=== PATIENT | female | born 1955 | race Hispanic/Latino ===

== ENCOUNTER 2021-10-11 11:07 | Outpatient (CLI) | payer OTHER, SELFPAY ==
--- NOTE | ~2021-10-11 | XR_ITS ---
XR lumbar spine 2-3V DATE: 10/11/2021 11:43 INDICATION: Chronic low back pain with intermittent left lower extremity radiculopathy TECHNIQUE: AP, lateral, coned lateral lumbosacral views COMPARISON: 02/24/2015 lumbar spine FINDINGS: Diffuse osteopenia. There is mild thoracolumbar levoscoliosis. Moderately severe degenerative disc disease is noted at L2-3 and L5-S1. Remaining lumbar interspaces are relatively preserved. There is degenerative spurring the lower thoracic spine. No fracture or bone destruction is evident. There is degenerative change at the apophyseal joints wit h associated minimal grade 1 anterolisthesis at L4-5. The sacroiliac joints are intact. IMPRESSION: Osteopenia Mild thoracolumbar levoscoliosis Mildly severe degenerative disc disease at L2-3 and L5-S1, worsened since 02/24/2015 Grade 1 anterolisthesis at L4-5 due to degenerative change at the apophyseal joints Reviewed, dictated and finalized at location A. IMPRESSION: Osteopenia Mild thoracolumbar levoscoliosis Mildly severe degenerative disc disease at L2-3 and L5-S1, worsened since 02/24 Grade 1 anterolisthesis at L4-5 due to degenerative change at the apophyseal anil ints
== END 2021-10-11 11:08 | disposition home or self-care (01) ==
PROVIDERS: PCP Family Medicine; Visit Provider Physician Assistant
DX: M54.59 Other low back pain (principal); M41.86 Other forms of scoliosis, lumbar region; M51.36 Other intervertebral disc degeneration, lumbar region; M43.16 Spondylolisthesis, lumbar region
CPT/HCPCS: 72100

== ENCOUNTER 2022-06-18 14:44 | Outpatient (CLI) | payer MEDICARE, MEDICAID, SELFPAY ==
--- NOTE | ~2022-06-18 | MM_ITS ---
EXAMINATION: MM screening elif BI w wilmer HISTORY: Screening mammogram TECHNIQUE: Craniocaudal and mediolateral oblique 3-D tomosynthesis images were obtained and synthetic 2-D images were generated. CAD analysis was submitted and interpreted. COMPARISON: 08/17/2013, 08/15/2012 bilateral screening mammogram examinations BREAST PARENCHYMAL COMPOSITION: There are scattered areas of fibroglandular density. FINDINGS: There is no evidence of suspicious mass, calcification, or architectural distortion to sugg est malignancy in either breast. There has been no suspicious interval change. IMPRESSION: 1. No mammographic evidence of malignancy. 2. Recommend routine screening mammography in one year. BI-RADS Category 1: Negative Reviewed, dictated and finalized at location A. L [employer]
--- NOTE | ~2022-06-18 | DEXA_ITS ---
Bone Density Report Name: CAREY HAYDEN Age: 66 Sex: Female Ethnicity: White Date of : 1955 Indication: postmenopausal; screening for osteoporosis; Referring Provider: KYLIE, COLIN Cantu Study: Bone densitometry was performed. Exam Date: June 18, 2022 Accession number: [id number] Bone Density: Region BMD T-score Z-score Classification AP Spine(L1-L4) 0.761 -2.6 -0.7 Osteoporosis Femoral Neck (Left) 0.594 -2.3 -0.6 Osteopenia Total Hip (Left) 0.814 -1.0 0.3 Normal Femoral Neck (Right) 0.633 -1.9 -0.3 Osteopenia Total Hip (Right) 0.772 -1.4 0.0 Osteopenia Total Hip Mean 0.793 -1.2 0.2 Osteopenia World Health Organization criteria for BMD impression classify patients as: Normal (T-score at or above -1.0), Osteopenia (T-score between -1.0 and -2.5), or Osteoporosis (T-score at or below -2.5). 10-year Fracture Risk: FRAX not reported because: Some T-score for Spine Total or Hip Total or Femoral Neck at or below -2.5 Clinical Information Provided by Patient: Has used the following medications: Vitamin D, Calcium Patient maximum height was 59 Menopause Age: 41 No regular weight bearing exercise Drinks caffeinated beverages Onset of menses at age 10 Number of children 5 Impression: The patient has osteoporosis, based on the Total Spine T-score. Discussion: INCREASED RISK OF FRACTURE. BONE DENSITY IS UNDESIRABLY LOW AT ONE OR MORE SKELETAL SITES, CONSISTENT WITH POSTMENOPAUSAL OSTEOPOROSIS. This patient's lowest T-score meets the World Health Organization's (WHO) criteria for osteoporosis at one or more sites (T-score -2.5 or below). In untreated patients, the risk of osteoporotic fracture increases approximately two-fold for each 1.0 SD decrease in T-score. Low bone density is not the only risk factor for fracture; also consider factors such as patient's age, frailty or poor health, risk of falling, risk of injury, previous osteoporotic fracture, family history of osteoporosis, cigarette smoking, low body weight, etc. Not everyone with low bone mineral density has osteoporosis; osteomalacia and other metabolic bone disorders should also be considered. Patients who have osteoporosis should be evaluated for specific diseases and conditions (secondary causes) that may cause or contribute to bone loss. The [place] [employer] Endocrinologists (AACE) and National Osteoporosis Foundation (NOF) recommend pharmacologic intervention for all postmenopausal women whose T-score is in this range. The patient should follow a healthful lifestyle (good nutrition with adequate calcium and vitamin D, and appropriate weight-bearing exercise). Follow-Up: Consider a repeat BMD and Vertebral Fracture Assessment (VFA) exam in 2 years or sooner if medically necessary, to reassess this patient's s
== END 2022-06-18 14:45 | disposition home or self-care (01) ==
LOC: ANHIMG 14:46
PROVIDERS: PCP Family Medicine; Visit Provider Physician Assistant
DX: Z12.31 Encounter for screening mammogram for malignant neoplasm of breast (principal); Z78.0 Asymptomatic menopausal state; M81.0 Age-related osteoporosis without current pathological fracture; M85.852 Other specified disorders of bone density and structure, left thigh; M85.851 Other specified disorders of bone density and structure, right thigh
CPT/HCPCS: 77063; 77067; 77080

== ENCOUNTER 2023-02-07 09:55 | Emergency (ER) | payer MEDICARE, MEDICAID, SELFPAY ==
[2023-02-07] VITALS (29 sets, daily range): BP systolic 116–144; BP diastolic 49–92; PULSE 60–83; RESP 12–30; TEMP 36.9; O2SAT 95–100
--- NOTE | ~2023-02-07 | XR_ITS ---
XR knee RT min 4V DATE: 02/07/2023 11:05 INDICATION: Bilateral knee pain, right greater than left TECHNIQUE: 4 views COMPARISON: None FINDINGS: There is osteopenia. No fracture or dislocation or joint effusion, periosteal reaction or bone destruction is detected. Yanely int spaces appear well preserved. No radiopaque intra-articular loose body or chondrocalcinosis. Slight periarticular spurring of the patella. IMPRESSION: Osteopenia Slight patellofemoral osteoarthritis Reviewed, dictated and finalized at location L.
--- NOTE | ~2023-02-07 | XR_ITS ---
XR knee LT min 4V DATE: 02/07/2023 11:05 INDICATION: Bilateral knee pain, right greater than left TECHNIQUE: 4 views COMPARISON: None FINDINGS: There is osteopenia. There is mild periarticular spurring at the patellofemoral and medial compartments but joint spaces a ppear relatively preserved. No fracture or dislocation or joint effusion. No radiopaque intra-articular loose body or chondrocalc inosis. No periosteal reaction or bone destruction. IMPRESSION: Osteopenia Mild osteoarthritis Reviewed, dictated and finalized at location L.
--- NOTE | ~2023-02-07 | CT_ITS ---
EXAMINATION: CT abdomen pelvis w con DATE: 02/07/2023 14:23 INDICATION: Left flank pain TECHNIQUE: Computed tomography (CT) of the abdomen and pelvis was performed with 100 mL Omnipaque-350 intravenous contrast. Automated exposure control and iterative reconstruction technique were employe d. The dose-length product was 457.36 mGy-cm. COMPARISON: None FINDINGS: Minimal subpleural atelectasis in the bilateral lower lobes. Heart size is normal. No pericardial or pleural effusion. Diffuse hepatic steatosis. Gallbladder, spleen, pancreas, bilateral adrenal glands and kidneys are normal. Bowels including the appendix are normal. Partially decompressed bladder, ant everted uterus and bilateral adnexa are unremarkable. There are rim calcified heterotopic ossicles in the pelvis which may represent sequela of chronic fat necrosis. No free intraperitoneal gas or fluid . No pathologically enlarged abdominal or pelvic lymphadenopathy. Small fat-containing umbilical steffi ia. Mild lumbar dextrocurvature. Severe spondylosis at the lumbosacral junction with moderate spondyl osis of the more cephalad lumbar and lower thoracic spine. IMPRESSION: 1. No acute intra-abdominal/pelvic process. Reviewed, dictated and finalized at location A.
[2023-02-07 11:24] LABS: Appearance Urine Clear (Clear); Bilirubin Urine Negative (Negative); Blood Urine 2+ (Negative); Color Urine Yellow (Yellow); Glucose Urine UA 2+ mg/dL (Negative); Ketones Urine Negative (Negative); Leukocyte Esterase Ur Trace LEU/UL (Negative); Nitrate Urine Negative (Negative); Protein Urine Negative (Negative); pH Urine 6.5 (5.0-9.0)
[2023-02-07 11:29] LABS: Bacteria Urine None Seen /hpf; Non Pathogenic Casts 0-2; RBC Urine 0-2 /hpf (0-2); Squamous Epithelial Cell Urine Occasional /hpf (Few); WBC Urine 0-5 /hpf
[2023-02-07 11:36] LABS: Add Urine Microscopic? YES
[2023-02-07 12:29] LABS: Basophils Percent Auto 0.5 % (0.2-1.2); Eosinophils Absolute Auto 0.2 K/mm3 (0-0.3); Hematocrit 42.5 % (37.0-47.0); Hemoglobin 14.3 g/dL (12.0-15.0); Immature Granulocyte Absolute 0.03 K/mm3 (0.00-0.031); Immature Granulocyte Percent A 0.4 % (0-0.5); Lymphocytes Absolute Auto 2.73 K/mm3 (0.9-3.2); Mean Corpuscular HGB Conc 33.6 g/dl (32-36); Mean Corpuscular Hemoglobin 29.7 pg (26-34); Mean Corpuscular Volume 88.4 fl (80-100); Mean Platelet Volume 11.9 fl (7.4-10.4); Monocytes Absolute Auto 0.4 K/mm3 (0.1-0.6); Monocytes Percent Auto 5.3 % (2.6-8.5); Neutrophils Absolute Auto 4.2 K/mm3 (1.3-6.7); Neutrophils Percent Auto 55.8 % (45.5-73.1); Platelet Count Result 184 k/mm3 (150-375); Red Blood Count 4.81 M/mm3 (4.2-5.4); White Blood Count 7.6 K/mm3 (4.5-10.0)
[2023-02-07 12:43] LABS: Alanine Aminotransferase 48 U/L (6-35); Albumin Level 4.6 g/dL (3.5-5.1); Alkaline Phosphatase 135 U/L (38-126); Anion Gap 9 mmol/L (8-16); Aspartate Amino Transferase 45 U/L (14-36); Bilirubin,Total 0.6 mg/dL (0.2-1.3); Blood Urea Nitrogen 15 mg/dL (7-17); Calcium 9.5 mg/dL (8.4-10.2); Carbon Dioxide 31 mmol/L (22-30); Chloride 98 mmol/L (98-107); Estimated CRCL calculation 77 ml/min; Estimated Glomerular Filt Rate > 60; Glucose 209 mg/dL (65-110); Potassium 4.1 mmol/L (3.4-5.0); Sodium 138 mmol/L (137-145)
--- NOTE | 2023-02-07 15:39 | ED.GENADULT ---
HPI - General Adult General Chief complaint: Unspecified Stated complaint: feet hurting, falling, vaginal bleeding Time Seen by Provider: 02/07/23 12:32 History of Present Illness HPI narrative: This is a 67-year-old female, who presents emergency department complaining of bilateral knee pain for the past several weeks and hematuria for the past several days. The patient denies any recent trauma or falls. She complains of bilateral dull knee pain, rated 4/10. She complains of some dysuria and has noted blood with wiping. She denies bleeding from any other source. She also complains of bilateral paresthesias of the feet. Related Data Allergies Allergy/AdvReac Type Severity Reaction Status Date / Time No Known Allergies Allergy Verified 02/07/23 09:56 Review of Systems Review of Systems: CONSTITUTIONAL: Denies fever, chills, or sweats. CARDIOVASCULAR: Denies chest pain, palpitations, or edema. RESPIRATORY: Denies cough or dyspnea. GASTROINTESTINAL: Denies abdominal pain, nausea, vomiting, or diarrhea. GENITOURINARY: Dysuria and hematuria SKIN: Denies rash or itching. MUSCULOSKELETAL: Bilateral knee pain denies back pain, or myalgia. NEUROLOGIC: Paresthesias of the feet denies headache, numbness, dizziness, or weakness. PSYCHIATRIC: Denies anxiety or depression. PMFSH Past Medical History Medical History Diabetes mellitus Hypertension Surgical History Surgical History History of Social History Social History Smoking status: Never smoker Alcohol intake: current Drinks per week: 1 Substance use: never Exam Narrative: GENERAL: Well-developed, well-nourished, and in no acute distress. HEAD: Normocephalic, atraumatic. EYES: PERRLA and EOMI. CHEST: Clear to auscultation. No respiratory distress. No wheezes rales or rhonchi HEART: Regular rate and rhythm. No murmur heard. Normal peripheral pulses. ABDOMEN: Soft, nontender, nondistended, normal active bowel sounds. EXTREMITIES: No noted erythema, induration or swelling of the knees. Normal range of motion. No edema. SKIN: Warm, dry, no rash. NEURO: Alert and oriented x3. Moving all 4 limbs purposefully. PSYCH: Normal mood and affect. Course Course Emergency Course: 16:00 - CBC unremarkable. Chemistries demonstrate hyperglycemia but are otherwise unremarkable. CT not concerning for acute process. Xrays of the knees negative. Will discharge with antibiotics for UTI. I suspect the patient's paresthesias are related to peripheral neuropathy. Will trial a course of gabapentin. I advised the patient to follow up with her primary care doctor. Discussed return and emergency precautions including signs/symptoms of acute abdomen and intractable vomiting. The patient voiced understanding and is comfortable with the plan. All questions answered to her satisfaction. Vital Signs Vital signs: Vital Signs Temperature 98.5 F 02/07/23 10:11 Pulse Rate 77 02/07/23 10:11 Respiratory Rate 16 02/07/23 10:11 Blood Pressure 144/88 H 02/07/23 10:11 Pulse Oximetry 100 02/07/23 10:11 Temperature 98.5 F 02/07/23 10:11 Pulse Rate 75 02/07/23 16:15 Respiratory Rate 17 02/07/23 16:15 Blood Pressure 130/92 H 02/07/23 16:15 Pulse Oximetry 97 02/07/23 16:15 Medical Decision Making [facility] Narrative Medical decision making narrative: Plan: Labs, imaging, reasses Differential Diagnosis Differential Diagnosis: UTI, pyelonephritis, kidney stone, diverticulitis, cholecystitis, metabolic abnormality, osteoarthritis, peripheral neuropathy, other Vital Signs Vital Signs: Vital Signs Temperature 98.5 F 02/07/23 10:11 Pulse Rate 77 02/07/23 10:11 Respiratory Rate 16 02/07/23 10:11 Blood Pressure 144/88 H 02/07/23 10:11 Pulse Oximetry 100 02/07/23 1
== END 2023-02-07 16:15 | disposition home or self-care (01) ==
PROVIDERS: Emergency Provider Preventive Medicine Aerospace Medicine; PCP Family Medicine
DX: N39.0 Urinary tract infection, site not specified (principal); R31.9 Hematuria, unspecified; E11.42 Type 2 diabetes mellitus with diabetic polyneuropathy; I10 Essential (primary) hypertension; M17.0 Bilateral primary osteoarthritis of knee; M85.88 Other specified disorders of bone density and structure, other site
CPT/HCPCS: 36415; 73564; 74177; 80053; 81001; 85025; 99284; Q9967

== ENCOUNTER 2023-07-14 19:09 | Emergency (ER) | payer MEDICARE, SELFPAY ==
[2023-07-14 19:30] VITALS: BP 144/59; PULSE 71; RESP 16; TEMP 37.2; O2SAT 98
--- NOTE | 2023-07-14 19:37 | ED.FEMALEGU ---
HPI - Female Genitourinary General Chief complaint: Urogenital-Female Stated complaint: urinary issue, right foot pain Time Seen by Provider: 07/14/23 19:35 Source: patient and RN notes reviewed Mode of arrival: ambulatory Limitations: no limitations History of Present Illness HPI Narrative: 67-year-old female presents with concern for dysuria, frequency, urgency, urine incontinence that started yesterday. She reports fatigue, denies fever, body aches, chills, sweats, abdominal pain, back pain, nausea or vomiting. She also reports flare-up of chronic knee pain. MD elicited complaint: UTI Related Data Home Medications Medication Instructions Recorded Confirmed cholecalciferol (vitamin D3) 125 1 unit PO DAILY 07/14/23 07/14/23 mcg (5,000 unit) capsule glipizide 10 mg tablet, extended 10 mg PO QAM 07/14/23 07/14/23 release 24 hr omeprazole 40 mg capsule,delayed 40 mg PO BID 07/14/23 07/14/23 release Allergies Allergy/AdvReac Type Severity Reaction Status Date / Time No Known Allergies Allergy Verified 07/14/23 19:11 Review of Systems Review of Systems: CONSTITUTIONAL: Denies malaise, chills, sweats, or fever. CARDIOVASCULAR: Denies chest pain, palpitations, or edema. RESPIRATORY: Denies cough or dyspnea. GASTROINTESTINAL: Denies abdominal pain, nausea, vomiting, diarrhea GENITOURINARY: Reports dysuria, frequency, urgency. Denies flank pain or hematuria. SKIN: Denies rash or itching. MUSCULOSKELETAL: Denies back pain or myalgia. Reports chronic knee pain All systems reviewed & are unremarkable except as noted in HPI and below PMFSH Past Medical History Medical History Diabetes mellitus Hypertension Surgical History Surgical History History of Social History Social History Smoking status: Never smoker Alcohol intake: current Drinks per week: 1 Substance use: never Comments At time of signature, agree with nursing past medical, surgical, social and family history. There is no relevant family history pertinent to the presenting complaint Exam Narrative: GENERAL: Well-appearing, well-nourished, and in no acute distress. HEAD: Normocephalic. EYES: PERRLA, conjunctivae clear. NECK: Supple. No lymphadenopathy CHEST: Clear to auscultation. No respiratory distress. HEART: Regular rate and rhythm. ABDOMEN: Soft, nontender upon palpation, nondistended, normal active bowel sounds, no palpable or pulsatile masses, no guarding. SKIN: Warm, dry, no rash. NEURO: Alert and oriented x3. PSYCH: Normal mood and affect Course Course Emergency Course: Patient is aware of diagnosis, understands and agrees to treatment plan. Anticipatory guidance given. Patient agrees to follow-up as directed and is aware of reasons to seek care at the emergency department. Portions of this record may have been created with voice recognition software Level of Care: Express Care Visit Vital Signs Vital signs: Vital Signs Temperature 98.9 F 07/14/23 19:30 Pulse Rate 71 07/14/23 19:30 Respiratory Rate 16 07/14/23 19:30 Blood Pressure 144/59 H 07/14/23 19:30 Pulse Oximetry 98 07/14/23 19:30 Oxygen Delivery Room Air 07/14/23 19:30 Temperature 98.9 F 07/14/23 19:30 Pulse Rate 71 07/14/23 19:30 Respiratory Rate 16 07/14/23 19:30 Blood Pressure 144/59 H 07/14/23 19:30 Pulse Oximetry 98 07/14/23 19:30 Oxygen Delivery Room Air 07/14/23 19:30 Reviewed. MDM - Female Genitourinary MDM Narrative Medical decision making narrative: Exam findings and UA show no acute concerns or changes; patient is non-toxic appearing and is in no distress. Patient is appropriate for outpatient treatment and follow-up. Differential Diagnosis Differential diagnosis: Likely urinary tract infection and c
== END 2023-07-14 19:56 | disposition home or self-care (01) ==
PROVIDERS: Emergency Provider Nurse Practitioner; PCP Family Medicine
DX: N39.0 Urinary tract infection, site not specified (principal); G89.29 Other chronic pain; M25.561 Pain in right knee; E11.9 Type 2 diabetes mellitus without complications; I10 Essential (primary) hypertension
CPT/HCPCS: 81003; 87086; 99213; G0463

== ENCOUNTER 2023-08-05 09:25 | Outpatient (CLI) | payer MEDICARE, SELFPAY ==
--- NOTE | ~2023-08-05 | MR_ITS ---
MRI of the lumbar spine Clinical History: Back pain Technique: Axial T2-weighted images, and sagittal T1-weighted, T2-weighted, and T2 fat-sat images wer e acquired. Findings: There is no fracture or subluxation of the lumbar spine. Vertebral bodies maintain normal h eight and alignment. No suspicious bone marrow signal abnormality seen. At L1-L2, there is mild degenerative disc narrowing with mild disc bulge and moderate facet arthropat hy. No central canal stenosis. There is moderate left neural foraminal narrowing. Right neural forame n preserved. At L2-L3, there is advanced degenerative disc 9. There is diffuse disc bulge with mild to moderate fa cet arthropathy. There is minimal central canal stenosis. There is moderate bilateral neural foramina l narrowing. At L3-L4, there is mild degenerative disc narrowing. There is diffuse disc bulge and moderate facet a rthropathy, which results in mild central canal stenosis. There is moderate bilateral neural foramina l narrowing, left worse than right. At L4-L5, there is mild degenerative disc narrowing. Diffuse disc bulge and advanced facet arthropath y result in severe spinal canal stenosis/thecal sac compression. There is severe bilateral neural for aminal compromise, left worse than right. At L5-S1, there is severe degenerative disc narrowing. There is diffuse disc bulge and severe facet a rthropathy. No april central canal stenosis. There is severe bilateral neural foraminal narrowing. Paravertebral soft tissues are unremarkable. Impression: Advanced degenerative spondylosis, as detailed above, worst at L4-L5. Reviewed, dictated and finalized at [place] [facility]. Impression: Advanced degenerative spondylosis, as detailed above, worst at L4-L5.
== END 2023-08-05 09:26 | disposition home or self-care (01) ==
PROVIDERS: PCP Family Medicine; Visit Provider Orthopaedic Surgery
DX: R20.2 Paresthesia of skin (principal); M47.896 Other spondylosis, lumbar region
CPT/HCPCS: 72148

== ENCOUNTER 2023-10-07 15:56 | Outpatient (CLI) | payer MEDICARE, SELFPAY ==
--- NOTE | ~2023-10-07 | XR_ITS ---
EXAMINATION: [id number] DATE: 10/07/2023 16:09 INDICATION: Right knee pain. TECHNIQUE: 2 views of right knee were obtained. COMPARISON: Right knee radiographs 02/07/2023 FINDINGS: Bone alignment is normal. No fracture. There is mild tricompartmental osteoarthritis. There is a small knee joint effusion. IMPRESSION: 1. Mild right knee osteoarthritis. 2. Small right knee joint effusion. Reviewed, dictated and finalized at location A.
== END 2023-10-07 15:57 ==
LOC: MICIMG 15:57
PROVIDERS: PCP Nurse Practitioner Family; Visit Provider Nurse Practitioner Family
DX: M17.11 Unilateral primary osteoarthritis, right knee (principal); M25.561 Pain in right knee; M25.461 Effusion, right knee
CPT/HCPCS: 73560

== ENCOUNTER 2023-11-11 09:08 | Emergency (ER) | payer MEDICARE, SELFPAY ==
[2023-11-11 09:19] VITALS: BP 138/66; PULSE 67; RESP 16; TEMP 36.1; O2SAT 99
--- NOTE | 2023-11-11 09:34 | ED.FEMALEGU ---
HPI - Female Genitourinary General Chief complaint: Urogenital-Female Stated complaint: urinary issue/burning Time Seen by Provider: 11/11/23 09:34 Source: patient Mode of arrival: ambulatory Limitations: no limitations History of Present Illness HPI Narrative: 68-year-old female presents complaint of urinary frequency, urgency, dysuria, suprapubic pain for 1 week. Drinking cranberry juice no relief of symptoms. Afebrile. Denies nausea vomiting. All Systems reviewed and negative except as noted above. Related Data Home Medications Medication Instructions Recorded Confirmed cholecalciferol (vitamin D3) 125 1 unit PO DAILY 07/14/23 07/14/23 mcg (5,000 unit) capsule glipizide 10 mg tablet, extended 10 mg PO QAM 07/14/23 07/14/23 release 24 hr omeprazole 40 mg capsule,delayed 40 mg PO BID 07/14/23 07/14/23 release diclofenac sodium 50 mg 50 mg PO DAILY 11/11/23 11/11/23 tablet,delayed release Allergies Allergy/AdvReac Type Severity Reaction Status Date / Time No Known Allergies Allergy Verified 11/11/23 09:32 Review of Systems Review of Systems: CONSTITUTIONAL: Denies fever, chills, or sweats. EYES: Denies visual changes, redness, or discharge. ENT: Denies rhinorrhea, congestion, sore throat, or otalgia. CARDIOVASCULAR: Denies chest pain, palpitations, or edema. RESPIRATORY: Denies cough or dyspnea. GASTROINTESTINAL: Denies abdominal pain, nausea, vomiting, or diarrhea. GENITOURINARY: reports dysuria, frequency, urgency. Denies hematuria. SKIN: Denies rash or itching. MUSCULOSKELETAL: Denies back pain, joint pain, or myalgia. NEUROLOGIC: Denies headache, numbness, or weakness. PSYCHIATRIC: Denies anxiety or depression. All other systems reviewed are negative, except as documented in HPI. [facility] Past Medical History Medical History (Updated 11/11/23 @ 09:38 by Sophie Wilson NP) Diabetes mellitus Hypertension Spinal stenosis, lumbar Surgical History Surgical History History of Social History Social History Smoking status: Never smoker Alcohol intake: current Drinks per week: 1 Substance use: never Comments At time of signature, agree with nursing past medical, surgical, social and family history. There is no relevant family history pertinent to the presenting complaint. Exam Narrative: GENERAL: This is a well-nourished, well-developed patient, in no apparent distress. HEAD: normocephalic, atraumatic. EYES: PERRL. Sclera clear/white. Vision is grossly intact. EARS: External ears normal NOSE: External nose normal NECK: Neck supple, non-tender without lymphadenopathy, masses or thyromegaly. CARDIOVASCULAR: Regular rate and rhythm without murmurs, gallops, or rubs. RESPIRATORY: Clear to auscultation. Breath sounds equal bilaterally. No wheezes, rales, or rhonchi. SKIN: warm, Dry, intact with no suspicious lesions or rash, good texture and turgor. NEURO: awake, alert, and oriented to person, place and time. There were no obvious focal neurologic abnormalities. EXTREMITIES: No joint tenderness, effusion, or edema noted. Course Course Level of Care: Express Care Visit Vital Signs Vital signs: Vital Signs Temperature 36.1 C L 11/11/23 09:19 Pulse Rate 67 11/11/23 09:19 Respiratory Rate 16 11/11/23 09:19 Blood Pressure 138/66 11/11/23 09:19 Pulse Oximetry 99 11/11/23 09:19 Oxygen Delivery Room Air 11/11/23 09:19 Temperature 36.1 C L 11/11/23 09:19 Pulse Rate 67 11/11/23 09:19 Respiratory Rate 16 11/11/23 09:19 Blood Pressure 138/66 11/11/23 09:19 Pulse Oximetry 99 11/11/23 09:19 Oxygen Delivery Room Air 11/11/23 09:19 reviewed MDM - Female Genitourinary MDM Narrative Medical decision making narrative: Patient is aware of diagnosis, understands and agrees to treatment plan. A
[2023-11-11 09:35] LABS: EDUAAPPEAR Clear; EDUABILI Negative; EDUABLOOD Trace; EDUACOLOR1 Yellow; EDUAGLUCOSE Trace; EDUAKETONE Trace; EDUALEUKO 2+; EDUANITRATE Negative; EDUAPROTEIN 1+
== END 2023-11-11 09:42 | disposition home or self-care (01) ==
PROVIDERS: Emergency Provider Nurse Practitioner Family; PCP Nurse Practitioner Family
DX: N39.0 Urinary tract infection, site not specified (principal); E11.9 Type 2 diabetes mellitus without complications; I10 Essential (primary) hypertension; M48.061 Spinal stenosis, lumbar region without neurogenic claudication
CPT/HCPCS: 81003; 87086; 87088; 99213; G0463